=== PATIENT | female | born 1965 | race African-American/Black ===

== ENCOUNTER 2018-07-23 10:11 | Emergency (ER) | payer OTHER ==
--- NOTE | 2018-07-23 10:39 | ED ---
Headache - HPI Summary HPI Summary: This patient is a 53 year old F presenting to ED with a chief complaint of frontal QUIROZ since 07/19/18. She reports her QUIROZ was very sensitive to touch. That morning, she reports that she had vision loss and couldnt see the computer screen in front of her. Then, soon after, she said she felt hot air coming out from my mouth and her vision loss resolved. The following day, she had a QUIROZ in the morning, and said she acquired a bump on her forehead. But since then, she has been unable to think right, has been repeating herself, and forgetting or cannot recall the following sentence. Since yesterday, she has had diffuse burning CP radiating to her L arm and she says that deep breaths make it better. She also has had pain on the back of her head and neck all day yesterday. The patient rates the pain 9/10 in severity. Symptoms aggravated by nothing. Symptoms alleviated by nothing. Her headache has subsided a bit since onset but has not resolved. Patient reports subjective fever. Patient denies chills, rhinorrhea, sore throat, cough, and N/V. The patient reports she has had previous issues with her L arm for a while and her PCP knows about this issue. PMHx of QUIROZ but this episode has lasted longer than usual and palpitations. - History Of Current Complaint Chief Complaint: EDChestPainROMI Stated Complaint: CHEST PAIN/HEADACHE PER PT Time Seen by Provider: 07/23/18 10:23 Hx Obtained From: Patient Onset/Duration: Sudden Onset, Started days ago, Still Present Initially Headache Was: Initial Pain Scale(0-10)= - 9/10, Severe Timing: Constant, Days Location of Headache: Frontal Aggravating Factor: Nothing Allevating Factors: Nothing Associated Signs And Symptoms: Neck Pain, Visual Changes - vision loss - Allergies/Home Medications Allergies/Adverse Reactions: Allergies Allergy/AdvReac Type Severity Reaction Status Date / Time cortisone Allergy Mild Rash Verified 07/23/18 12:35 quinine Allergy Unknown Verified 07/23/18 12:35 Reaction Details Home Medications: Home Medications Atorvastatin* [Lipitor*] 10 mg PO DAILY 07/23/18 [History Confirmed 07/23/18] Losartan/HCTZ 100/25 (NF) [Hyzaar 100/25 (NF)] 1 tab PO DAILY 07/23/18 [History Confirmed 07/23/18] Metformin ER (NF) 500 mg PO DAILY 07/23/18 [History Confirmed 07/23/18] Metoprolol Tartrate TAB* [Lopressor TAB*] 50 mg PO BID 07/23/18 [History Confirmed 07/23/18] Potassium Chlor TAB* [Klor Con ER TAB*] 40 meq PO BID 07/23/18 [History Confirmed 07/23/18] amLODIPine TAB* [Norvasc 5 mg TAB*] 2.5 mg PO DAILY 07/23/18 [History Confirmed 07/23/18] PMH/Surg Hx/FS Hx/Imm Hx Endocrine/Hematology History: Reports: Hx Diabetes Cardiovascular History: Reports: Hx Hypertension - Cancer History Hx Chemotherapy: No Hx Radiation Therapy: No - Surgical History Surgery Procedure, Year, and Place: , hysterectomy 09/2011 Infectious Disease History: No Infectious Disease History: Denies: Traveled Outside the [place] in Last 30 Days - Family History Known Family History: Positive: Cardiac Disease, Diabetes Negative: Hypertension - Social History Alcohol Use: None Hx Substance Use: No Substance Use Type: Reports: None Hx Tobacco Use: No Smoking Status (MU): Never Smoked Tobacco Review of Systems Positive: Fever - subjective. Negative: Chills Positive: Other - vision loss Positive: Other - denies rhinorrhea. Negative: Sore Throat Positive: Chest Pain - radiating to L arm Negative: Cough Negative: Vomiting, Nausea Positive: Other - pain on the back of her head and neck Neurological: Other - she has been unable to think right, has been repeating herself, and forgetting or cannot recall the following sentence Positive: Headache - frontal All Other Systems Reviewed And Are Negative: Yes Physical Exam - Summary Physical Exam Summary: Constitutional: Well-developed, Well-nourished, Alert. (-) Distressed Skin: Warm, Dry HENT: Normocephalic; Atraumatic, forehead is tender to palpation Eyes: Conjunctiva normal Neck: Musculoskeletal ROM normal neck. (-) JVD, (-) Stridor, (-) Tracheal deviation Cardio: Rhythm regular, rate normal, Heart sounds normal; Intact distal pulses; The pedal pulses are 2+ and symmetric. Radial pulses are 2+ and symmetric. (-) Murmur Pulmonary/Chest wall: Effort normal. (-) Respiratory distress, (-) Wheezes, (-) Rales Abd: Soft, (-) tenderness, (-) Distension, (-) Guarding, (-) Rebound Musculoskeletal: (-) Edema Lymph: (-) Cervical adenopathy Neuro: Alert, Oriented x3 Psych: Mood and affect Normal GCS: 15 Triage Information Reviewed: Yes Vital Signs On Initial Exam: Initial Vitals Temp Pulse Resp BP Pulse Ox 98.3 F 100 18 154/110 100 07/23/18 10:16 07/23/18 10:16 07/23/18 10:16 07/23/18 10:16 07/23/18 10:16 Vital Signs Reviewed: Yes Diagnostics - Vital Signs Vital Signs Temp Pulse Resp BP Pulse Ox 07/23/18 10:16 98.3 F 100 18 154/110 100 - Laboratory Result Diagrams: 07/23/18 10:59 07/23/18 10:59 Lab Statement: Any lab studies that have been ordered have been reviewed, and results considered in the medical decision making process. - Radiology CXR Radiology Interpretation Completed By: Radiologist Summary of Radiographic Findings: NO ACTIVE CARDIOPULMONARY DISEASE. Dr. Lai has reviewed this radiology report. - CT Brain CT CT Interpretation Completed By: Radiologist Summary of CT Findings: NO ACUTE INTRACRANIAL PATHOLOGY. Dr. Lai has reviewed this radiology report. - EKG 1029 Cardiac Rate: Tachycardia - 101 BPM EKG Rhythm: Sinus Tachycardia Summary of EKG Findings: Sinus tachycardia at 101 bpm, normal UT, normal QRS, prolonged QTc, normal axis, normal ST, T-waves are flattened in II and aVF, non- specific EKG. Re-Evaluation - Re-Evaluation First Eval Re-Evaluation Time: 11:41 Comment: The patient says that she has not taken her BP today. Her CP is now gone with the nitro. She now has a burning sensation in her chest going into her mouth that feels different from the previous CP. Her L neck pain and L head pain is gone, but R neck pain persists when she turns her head to the right Second Eval Re-Evaluation Time: 12:26 Comment: Discussed plan for admission with the patient. Third Eval Re-Evaluation Time: 17:10 Comment: I discussed discharge with the patient. She agrees with this plan. Headache Course/Dx - Course Assessment/Plan: This patient is a 53 year old F presenting to ED with a chief complaint of frontal QUIROZ since 07/19/18. On exam, her forehead is tender to palpation. EKG reveals sinus tachycardia at 101 bpm, normal UT, normal QRS, prolonged QTc, normal axis, normal ST, T-waves are flattened in II and aVF, non- specific EKG. Brain CT reveals NO ACUTE INTRACRANIAL PATHOLOGY. CXR reveals NO ACTIVE CARDIOPULMONARY DISEASE. In the ED course, the patient was given ASA, magnesium sulfate, Maalox, hydrodiuril, losartan, reglan, Toprol, and nitro. Consulted Dr. Houser at 1246 and she will see the patient in the ED. Consulted Dr. Houser at 1600 about the patient's case and she recommends to discharge the patient. The patient will be discharged with dx of CP, migraine headache, lactic acidosis, HTN urgency, and GERD. Patient understands and agrees with this plan. - Diagnoses Differential Diagnosis/HQI/PQRI: Other - CP, QUIROZ, and lactic acidosis Provider Diagnoses: Chest pain, Headache, Lactic acidosis, Migraine headache, Hypertensive urgency , GERD (gastroesophageal reflux disease) - Physician Notifications Discussed Care Of Patient With: Hortensai Houser Time Discussed With Above Provider: 12:46 Instructed by Provider To: Other - Consulted Dr. Houser at 1246 and she will see the patient in the ED. Consulted Dr. Houser at 1600 about the patient's case and she recommends to discharge the patient. Discharge - Sign-Out/Discharge Documenting (check all that apply): Patient Departure - discharge Patient Received Moderate/Deep Sedation with Procedure: No - Discharge Plan Condition: Good Disposition: HOME Patient Education Materials: Chest Pain (ED), Acute Headache (DC) Print Language: SYRIAN Referrals: Justin Danielson MD [Primary Care Provider] - - Billing Disposition and Condition Condition: GOOD Disposition: Home - Attestation Statements Document Initiated by Floraibe: Yes Documenting Scribe: Tristan Bey Provider For Whom Misa is Documenting (Include Credential): Dr. Colleen Saldivar MD Scribe Attestation: Tristan Alex scribed for Dr. Colleen Saldivar MD on 07/23/18 at 2136. Scribe Documentation Reviewed: Yes Provider Attestation: The documentation as recorded by the Tristan carver accurately reflects the service I personally performed and the decisions made by me, Dr. Colleen Saldivar MD Status of Scribe Document: Viewed
[2018-07-23] MEDS ORDERED: Aspirin 81 mg CHEW TAB* 81 MG TAB.CHEW PO PRN (10:40)
[2018-07-23] MEDS ORDERED: Nitroglycerin TAB 0.4 MG* 0.4 MG TAB SL ONE (10:40)
[2018-07-23 11:12] LABS: ABS Basophils 0 10^3/ul (0-0.2); ABS Eosinophils 0 10^3/ul (0-0.6); ABS Monocytes 0.4 10^3/ul (0-0.8); ABS Nucleated RBC 0 10^3/ul; Eosinophil % 0.8 %; Hematocrit 38 % (33-41); Hemoglobin 12.1 g/dL (12.0-16.0); Lymphocyte % 36.4 %; Mean Corpuscular HGB Conc 32 g/dL (31-36); Mean Corpuscular Hemoglobin 30 pg (27-31); Mean Corpuscular Volume 92 fL (80-97); Mean Platelet Volume 8.2 fL (7.4-10.4); Nucleated Red Blood Cells % 0.1; Platelet Count 226 10^3/uL (150-450); Red Blood Count 4.06 10^6 /uL (3.70-4.87); Red Cell Distribution Width 13 % (10.5-15); White Blood Count 5.5 10^3/uL (3.5-10.8)
[2018-07-23 11:30] LABS: Albumin 4.2 g/dL (3.2-5.2); Albumin/Globulin Ratio 1.6 (1-3); BUN/Creatinine Ratio 14.6 (8-20); Calcium 9.3 mg/dL (8.6-10.3); EGFR African American 163.7 (>60); EGFR Non-African American 135.3 (>60); Globulin 2.7 g/dL (2-4); Magnesium 1.7 mg/dL (1.9-2.7); Potassium 3.5 mmol/L (3.5-5.0); Total Bilirubin 0.8 mg/dL (0.2-1.0); Total Protein 6.9 g/dL (6.4-8.9)
[2018-07-23] MEDS ORDERED: Magnesium Sulfate 1 GM IV* 1 GM/100 ML BAG IV ONE (11:33)
[2018-07-23] MEDS ORDERED: Metoprolol Succinate XL TAB* 50 MG PO ONE (11:54)
[2018-07-23] MEDS ORDERED: Losartan/HCTZ 100/25 (NF) TAB PO ONE (12:00)
[2018-07-23] MEDS ORDERED: Al Hydrox/Mg Hydrox/Simet LIQ* 30 ML UDC PO ONE (12:02)
[2018-07-23] MEDS ORDERED: Metoclopramide IV* 5 MG/ML 2 ML VIAL IV ONE (12:02)
[2018-07-23] MEDS ORDERED: Losartan TAB* 25 MG PO ONE (12:45)
[2018-07-23] MEDS: Hydrochlorothiazide TAB* 25 MG PO ONE (14:45)
--- NOTE | 2018-07-23 16:12 | PN ---
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 Medicine is consulted as pt reports she has CP on ROS. CP at time of my interview has resolved, she reports she does occasionaly have a "burning" mid sternal chest pain that radiates and does not seem positional. She has it at rest or exertion, if she presses on it it gets worse. I did review her outpatient notes and she has recently seen Dr. Wang for cardiology, she has had neg stress test in 2009, 2011, 2014, 2016, normal echo 2011, 2013. Her last visit was 05/[address] Wang. Data: Trop is neg, EKG is NSR Her risk factors are HTN and family hx of heart dz she is a lifetime non tob user, she does not report DM, though there is intermittent chart hx of diet controlled Past Medical / Surgical Hx/Chronic Medical Issues: Above Surgical: C section, hysterectomy Social History: Lives with spouse Tob: Never, ETOH: none Illicits: None Family History: Father-D natural causes M DM HTN Allergies: Cortisone, quinine VS: HTN mild to 150/90 HR sinus 80s, afebrile, RR 12 PE: Pleasant woman in NAD RRR no MRG, CTABL, Belly soft NT ND NABS, palp pulses no edema Data as above trop x 1 neg, EKG neg CTH: neg A/P: 53 yo F with PMH HTN, 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 Furthermore her c/o chest pain seems most c/w her well documented pain deemed as mastodynia which she has had thorough outpatient workup with Dr. ibarra and Dr. Santo -Encourage pt to take her HTN meds -Follow with outpatient Medicine will sign off she is stable for d/c from ED
[2018-07-23 17:31] VITALS: BP 147/85
== END 2018-07-23 17:36 | disposition home or self-care (01) ==
LOC: ED 10:11
DX: G43.909 Migraine, unspecified, not intractable, without status migrainosus (principal); I16.0 Hypertensive urgency; R07.89 Other chest pain; K21.9 Gastro-esophageal reflux disease without esophagitis; R00.0 Tachycardia, unspecified; M54.2 Cervicalgia; N64.4 Mastodynia; E11.9 Type 2 diabetes mellitus without complications; Z79.84 Long term (current) use of oral hypoglycemic drugs; Z88.8 Allergy status to other drugs, medicaments and biological substances; Z82.49 Family history of ischemic heart disease and other diseases of the circulatory system
CPT/HCPCS: 36415; 70450; 71045; 80053; 83605; 83735; 83880; 84484; 85025; 85652; 86140; 93005; 96365; 96375; 99285; A9270-GY; J2765; J3475

== ENCOUNTER 2019-01-29 10:40 | Day surgery (SDC) | payer BC, OTHER ==
--- NOTE | 2019-01-24 14:31 | HP ---
AMENDED REPORT NOW INCLUDES DESIGNATED COSIGNER PREOPERATIVE HISTORY AND PHYSICAL: DATE OF SURGERY/ADMISSION: 01/29/19 ATTENDING SURGEON: Snow Sanford MD * (DICTATED BY EMILY FRAGOSO) PROCEDURE: Trigger release, left thumb. DATE OF OFFICE VISIT/ENCOUNTER: 12/31/18 WAITER: Dr. Wang. 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 She complains of bilateral trigger thumbs for the past 6 months, worse on the left than on the right. Symptoms are most prominent in the morning. She does not recall any specific injury. She does not have any associated numbness or tingling. She is diabetic and it is reasonably controlled. She has been diagnosed with bilateral trigger thumbs and would like to proceed with a left thumb trigger release at this time. She had a recent workup for shortness of breath and heart palpitations. Her plant worker is Dr. Wang. We will receive clearance from Dr. Wang prior to proceeding with surgery. PAST MEDICAL HISTORY: 1. Asthma. 2. Diabetes mellitus type 2. 3. Hypertension. 4. Seasonal allergies. 5. Heart disease. 6. Sleep apnea with CPAP. 7. Shortness of breath with exertion. 8. G6PD deficiency. PAST SURGICAL HISTORY: 1. . 2. Hysterectomy. CURRENT MEDICATIONS: 1. Acetaminophen 325 mg 2 tabs q.6 hours p.r.n. 2. Amlodipine besylate 5 mg daily. 3. Atorvastatin calcium 10 mg daily. 4. Losartan potassium/hydrochlorothiazide daily. 5. Metformin HCl 500 mg daily. 6. Metoprolol tartrate 50 mg twice a day. 7. Calcium chloride ER 20 mEq 2 tabs twice a day. 8. RA Migraine Relief 250-250-65 mg p.r.n. ALLERGIES: ADHESIVES, CORTISONE, LATEX, PRIMAQUINE, and QUININE. FAMILY MEDICAL HISTORY: Diabetes, hypertension, rheumatoid arthritis. SOCIAL HISTORY: The patient lives with her spouse. 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 She denies tobacco use or recreational drug use and does not drink alcohol. REVIEW OF SYSTEMS: Negative for general, cephalic, cardiovascular, respiratory , GI, , other musculoskeletal, integumentary, endocrine, neurologic, and hematologic symptoms. Infectious Disease: Negative for MRSA, hepatitis C, HIV. PHYSICAL EXAMINATION GENERAL: Well-developed, well-nourished 53-year-old female, in no acute distress. VITAL SIGNS: Height 5 feet 1 inch, weight 184 pounds. Pulse rate 72, blood pressure 126/78. HEENT: Normocephalic, atraumatic. Pupils are equal, round, and reactive to light and accommodation. Extraocular movements are intact. NECK: Supple. No palpable lymph nodes. Throat is clear. PULMONARY: Lungs are clear to auscultation bilaterally. No wheezes, rales, or rhonchi. CARDIOVASCULAR: Regular rate and rhythm, S1, S2. No murmurs, rubs, or gallops. No edema. ABDOMEN: Positive bowel sounds, soft, nontender. NEUROLOGICAL: Alert and oriented x3. Cranial nerves II through XII are intact. Sensation is intact to light touch. MUSCULOSKELETAL: On exam of her bilateral hands, she has tenderness at the A1 kelsey of both thumbs. She has significant difficulty trying to flex her left thumb. She has full extension of both thumbs. Skin is intact. Neurovascular function is intact. IMPRESSION: Bilateral trigger thumb, left worse than right. PLAN: The patient is scheduled to undergo a trigger release, left thumb with Dr. Sanford on 01/29/19. She will return to the office 10 days postop for followup and suture removal. A prescription for Ultracet was e-scribed to the patient's pharmacy for postoperative pain management. EMILY FRAGOSO [id number]/[facility] #: [id number] VERENICE
[~2019-01-29 10:40] MED LIST: Buffered Lidocaine 1% SYRIN* 1 ML/SYRINGE INTRADERM ONE; Lactated Ringers 1000 ML Bag* 1,000 ML IV SCH
[2019-01-29] MEDS ORDERED: Lidocaine 1% INJ* 10 MG/ML 30 ML SDV ONE (12:14)
[2019-01-29] MEDS ORDERED: Propofol* 10 MG/ML 20 ML BTL ONE (12:43)
[2019-01-29] MEDS ORDERED: Lidocaine 2% PF * 5 ML VIAL ONE (12:43)
[2019-01-29] MEDS ORDERED: Naloxone* 0.4 MG/ML 1 ML VIAL IV PRN (13:03)
[2019-01-29 13:27] VITALS: BP 134/92
--- NOTE | 2019-01-29 22:52 | OP ---
DATE OF OPERATION: 01/29/19 [facility] DATE OF : 65 SURGEON: Dr. Sanford. FLAKER OPERATOR: EMILY Gore ANESTHESIA: Local MAC. PRE-OP DIAGNOSIS: Left trigger thumb. POST-OP DIAGNOSIS: Left trigger thumb. OPERATIVE PROCEDURE: Release, left trigger thumb. ESTIMATED BLOOD LOSS: 0. TOURNIQUET TIME: About 10 minutes. INDICATION FOR PROCEDURE: Sara is a 53-year-old woman with triggering and locking of her left thumb. She presents for trigger thumb release. DESCRIPTION OF PROCEDURE: The patient was brought to the operating room and was given a sedation anesthetic and a local infiltration of 10 cc of 1% plain lidocaine overlying the A1 kelsey of her left thumb. The skin of her left hand and forearm was prepped and draped in the usual sterile fashion. The hand and forearm were exsanguinated and tourniquet elevated to 250 mmHg. A transverse incision was made centered over the A1 kelsey of the left thumb and dissected through the subcutaneous tissue down to the A1 kelsey. The digital neurovascular bundles were retracted by the surgical services director Janna Duvall. The A1 kelsey was incised longitudinally completely releasing the flexor tendon , which was in good condition. The wound was irrigated and skin edges reapproximated with 4-0 nylon suture. The wound was dressed with Xeroform, 4x4 , Webril, and an Augusto wrap. The patient tolerated the procedure well and was brought to the recovery room in good condition. [id number]/[facility] #: [id number] MTDD
== END 2019-01-29 13:37 | disposition home or self-care (01) ==
LOC: OREAST 10:40
PROVIDERS: ATTEND Orthopaedic Surgery
PROC: 0LN80ZZ Release Left Hand Tendon, Open Approach (ICD-10-PCS; principal; 2019-01-29 12:00)
DX: M65.312 Trigger thumb, left thumb (principal); G47.33 Obstructive sleep apnea (adult) (pediatric); J45.909 Unspecified asthma, uncomplicated; E78.49 Other hyperlipidemia; I10 Essential (primary) hypertension; Z99.81 Dependence on supplemental oxygen; E11.8 Type 2 diabetes mellitus with unspecified complications; Z79.84 Long term (current) use of oral hypoglycemic drugs; Z79.899 Other long term (current) drug therapy
CPT/HCPCS: J2704

== ENCOUNTER → 2019-02-19 | Day surgery (SDC) | payer BC ==
--- NOTE | 2019-02-14 10:00 | HP ---
PREOPERATIVE HISTORY AND PHYSICAL: DATE OF SURGERY/ADMISSION: 02/19/19 [facility] DATE OF OFFICE VISIT/ENCOUNTER: 02/07/19 ATTENDING SURGEON: Snow Sanford MD * (DICTATED BY EMILY FRAGOSO) PROCEDURE: Right thumb trigger release. CAMPUS MANAGER: Dr. Wang. 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 She complains of triggering in her right thumb that has been ongoing for 6 months. Symptoms are most noticeable in the morning. She does not recall any specific injury. She does not have any associated numbness or tingling. She is a diabetic and it is reasonably controlled. She recently underwent a left thumb trigger release and now presents for a right thumb trigger release. Prior to her left thumb trigger release, we got clearance by Dr. Wang. PAST MEDICAL HISTORY: 1. Asthma. 2. Diabetes mellitus type 2. 3. Hypertension. 4. Seasonal allergies. 5. Heart disease. 6. Sleep apnea with CPAP. 7. Shortness of breath with exertion. 8. G6PD deficiency. CURRENT MEDICATIONS: 1. Acetaminophen 325 mg 2 tabs q.6 hours p.r.n. 2. Amlodipine besylate 5 mg daily. 3. Atorvastatin calcium 10 mg daily. 4. Losartan potassium/hydrochlorothiazide daily. 5. Metformin/HCl 500 mg daily. 6. Metoprolol tartrate 50 mg twice a day. 7. Calcium chloride ER 20 mEq 2 tabs twice a day. 8. RA migraine relief 250-250-65 mg p.r.n. ALLERGIES: ADHESIVES, CORTISONE, LATEX, PRIMAQUINE, and QUININE. FAMILY MEDICAL HISTORY: Diabetes, hypertension, rheumatoid arthritis. SOCIAL HISTORY: The patient lives with her spouse. 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 She denies tobacco use or recreational drug use and does not drink alcohol. REVIEW OF SYSTEMS: Negative for general, cephalic, cardiovascular, respiratory , GI, , other musculoskeletal, integumentary, endocrine, neurologic, and hematologic symptoms. Infectious Disease: Negative for MRSA, hepatitis C, HIV. PHYSICAL EXAMINATION GENERAL: Well-developed, well-nourished 53-year-old female, in no acute distress. VITAL SIGNS: Height 5 feet 1 inch, weight 184 pounds. Pulse rate 72, blood pressure 126/78. HEENT: Normocephalic, atraumatic. Pupils are equal, round, and reactive to light and accommodation. Extraocular movements are intact. Throat is clear. NECK: Supple. No palpable lymph nodes. PULMONARY: Lungs are clear to auscultation bilaterally. No wheezes, rales, or rhonchi. CARDIOVASCULAR: Regular rate and rhythm. S1, S2. No murmurs, rubs, or gallops. No edema. ABDOMEN: Positive bowel sounds. Soft, nontender. NEUROLOGICAL: Alert and oriented x3. Cranial nerves II through XII are intact. Sensation is intact to light touch. MUSCULOSKELETAL: On exam of her right hand, she has tenderness to palpation at the A1 kelsey of the thumb. She has difficulty trying to flex her thumb. She has full extension. Skin is intact. Neurovascular function is intact. IMPRESSION: Right trigger thumb. PLAN: The patient is scheduled to undergo a right thumb trigger release with Dr. Sanford on 02/19/19. She will return to the office 10 days postop for followup and suture removal. A prescription for Ultracet was e-scribed to the patient's pharmacy for postoperative pain management. EMILY FRAGOSO [id number]/[facility] #: [id number] VERENICE
[~2019-02-19] MED LIST changes: +Lidocaine 1% INJ* 10 MG/ML 30 ML SDV ONE; +Midazolam* 1 MG/ML 2 ML VIAL (2 MG) ONE; +Naloxone* 0.4 MG/ML 1 ML VIAL IV PRN; +Propofol* 10 MG/ML 20 ML BTL ONE; +fentaNYL* 50 MCG/ML 2 ML VIAL (100 MCG VIAL) ONE
[2019-02-19 15:23] VITALS: BP 110/69
--- NOTE | 2019-02-19 21:10 | OP ---
DATE OF OPERATION: 02/19/19 [facility] DATE OF : 65 SURGEON: Snow Sanford MD. SUBSTATION OPERATOR CHIEF: EMILY Gore. ANESTHESIA: Local MAC. PRE-OP DIAGNOSIS: Right trigger thumb. POST-OP DIAGNOSIS: Right trigger thumb. OPERATIVE PROCEDURE: Right trigger thumb release. ESTIMATED BLOOD LOSS: Zero. TOURNIQUET TIME: Approximately 10 minutes. INDICATIONS FOR PROCEDURE: Sara is a 53-year-old woman who has triggering and locking of her right thumb. She presents for right trigger thumb release. DESCRIPTION OF PROCEDURE: The patient was brought to the operating room, was given a sedation anesthetic and a local infiltration of 10 cc of 1% plain lidocaine in the area of the A1 kelsey of the right thumb. The skin of her right hand and forearm was prepped and draped in the usual sterile fashion. The hand and forearm were exsanguinated and the tourniquet elevated to 250 mmHg. A transverse incision was made centered over the A1 kelsey of the right thumb. We dissected through the subcutaneous tissue down to the A1 kelsey. The digital neurovascular bundles were retracted by the regional vice president surgical sales, Janna Duvall. The A1 kelsey was incised longitudinally completely releasing the flexor tendon which was in good condition. The wound was irrigated and the skin edges were reapproximated with 4-0 nylon suture. The wound was dressed with Xeroform, 4x4, Webril, and an Augusto wrap. The patient tolerated the procedure well and was brought to the recovery room in good condition. [id number]/[facility] #: [id number] MTDD
== END | disposition home or self-care (01) ==
LOC: OREAST 09:05
PROVIDERS: ATTEND Orthopaedic Surgery
DX: M65.311 Trigger thumb, right thumb (principal); E11.9 Type 2 diabetes mellitus without complications; Z79.84 Long term (current) use of oral hypoglycemic drugs; J45.909 Unspecified asthma, uncomplicated; I10 Essential (primary) hypertension; G47.33 Obstructive sleep apnea (adult) (pediatric); R06.02 Shortness of breath; D75.A Glucose-6-phosphate dehydrogenase (G6PD) deficiency without anemia; R00.2 Palpitations
CPT/HCPCS: J2250; J2704; J3010